=== PATIENT | female | born 1960 ===

== ENCOUNTER 2020-02-13 00:15 | Emergency (ER) | payer OTHER ==
[~2020-02-13] VITALS: Ht 147.3 cm; Wt 59.0 kg
[2020-02-13] MEDS ORDERED: ZESTRIL2.5 MG (00:42)
[2020-02-13] MEDS ORDERED: SYNTHROID50 MCG (00:43)
[2020-02-13] MEDS ORDERED: PEPCID40 MG PO (04:43)
== END 2020-02-13 04:53 ==
LOC: ER 00:15 → CPU-OBS 00:44 → ER 04:53
DX: R07.89 Other chest pain (principal); Z20.828 Contact with and (suspected) exposure to other viral communicable diseases
CPT/HCPCS: G0378; G0379; 93005